=== PATIENT | male | born 1985 | race Caucasian/White ===

== ENCOUNTER 2020-02-29 04:26 | Emergency (ER) | payer MEDICAID, OTHER ==
[~2020-02-29] VITALS: Ht 180.3 cm; Wt 98.5 kg
[~2020-02-29 04:26] MED LIST: LISI-170 PO
--- NOTE | 2020-02-29 05:00 | NUR ---
SAMUEL CABA AT BEDSIDE EVALUATING PT
[2020-02-29] MEDS ORDERED: HYDROmorphone 1 MG/ML, 1ML INJ ONE (05:14)
[2020-02-29] MEDS ORDERED: ONDANSETRON ODT 4 MG ONE (05:14)
[2020-02-29] MEDS ORDERED: L.E.T SOLUTION TP ONE ×3 (05:15→05:58)
[2020-02-29] MEDS ORDERED: HYDROmorphone 2 MG/ML, 1ML IM ONE (05:30)
[2020-02-29] MEDS ORDERED: ONDANSETRON ODT 4 MG PO ONE (05:30)
[2020-02-29] MEDS ORDERED: KETOROLAC 30 MG/1 ML ONE (05:41)
[2020-02-29] MEDS ORDERED: MORPHINE SULFATE 4 MG/ML, 1ML ONE (05:42)
[2020-02-29] MEDS ORDERED: DIAZEPAM 5 MG/ML, 2ML ONE (05:44)
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
[2020-02-29] MEDS ORDERED: KETOROLAC 30 MG/1 ML IVPush ONE (06:00)
[2020-02-29] MEDS ORDERED: SODIUM CHLORIDE 0.9% 1,000ML IVBOLUS ONE (06:00)
[2020-02-29] MEDS ORDERED: MORPHINE SULFATE 4 MG/ML, 1ML IV PRN (06:00)
[2020-02-29] MEDS ORDERED: DIAZEPAM 5 MG/ML, 2ML IV ONE (06:00)
[2020-02-29] MEDS ORDERED: LIDOCAINE JELLY 2%, 30GM TP ONE (06:30)
--- NOTE | 2020-02-29 06:41 | NUR ---
SAMUEL CABA SPOKE WITH PT, HE IS NOW AGREEING TO IV. IV ESTABLISHED AND PT MEDICATED PER EMAR. 5 RIGHTS ADDRESSED
[2020-02-29] MEDS ORDERED: ASPIRIN 81 MG TABLET CHEW ONE (06:55)
--- NOTE | 2020-02-29 07:01 | NUR ---
REPORT TO MONIQUE RN
--- NOTE | 2020-02-29 07:01 | NUR ---
REPORT TAKEN. ORDERED SOPHIE GRANADOS FROM LAB. PATIENT IN BED ON SIDE, FRIEND AT BEDSIDE.
[2020-02-29 07:17] VITALS: BP 128/78
--- NOTE | 2020-02-29 07:19 | NUR ---
LIDO JELLY APPLIED TO WOUND TO HELP WITH PAIN
--- NOTE | 2020-02-29 07:49 | NUR ---
wound dressed with allevyn and gauze/tape. instructions reviewed.
== END 2020-02-29 08:21 | disposition home or self-care (01) ==
LOC: ED 08:10
DX: S40.212A Abrasion of left shoulder, initial encounter (principal); S30.810A Abrasion of lower back and pelvis, initial encounter; S50.312A Abrasion of left elbow, initial encounter; S40.812A Abrasion of left upper arm, initial encounter; S70.212A Abrasion, left hip, initial encounter; X58.XXXA Exposure to other specified factors, initial encounter; Y93.89 Activity, other specified; Y92.89 Other specified places as the place of occurrence of the external cause; Y99.8 Other external cause status
CPT/HCPCS: 96372; 96374; 96375; 99284; J1170; J1885; J3360; J7030

== ENCOUNTER 2020-03-02 11:08 | Emergency (ER) | payer MEDICAID ==
[~2020-03-02] VITALS: Ht 182.9 cm; Wt 97.7 kg
[2020-03-02 11:12] VITALS: BP 164/105
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
--- NOTE | 2020-03-02 11:59 | NUR ---
DRESSING REMOVED FROM L UPPER ARM AND TORSO PER SANTO TABARES
--- NOTE | 2020-03-02 12:08 | NUR ---
SANTO BAKER AT BEDSIDE FOR "ROAD RASH" WOUND EVALUATION S/P DRESSING REMOVAL
[2020-03-02] MEDS ORDERED: NEOSPORIN OINT. PKT 1 PACKET ONE ×2 (12:12→12:16)
--- NOTE | 2020-03-02 12:18 | NUR ---
FRITZ HAND SPINNER AT BEDSIDE. CLEANSING AND DRESSING WOUNDS PER MD ORDER. PT TOLERATING WELL.
--- NOTE | 2020-03-02 13:07 | NUR ---
Patient and significant other given discharge instructions and they have confirmed that they understand the instructions. Patient ambulatory with steady gait.
== END 2020-03-02 13:08 | disposition home or self-care (01) ==
LOC: ED 11:20
DX: S30.811A Abrasion of abdominal wall, initial encounter (principal); S40.812A Abrasion of left upper arm, initial encounter; S70.312A Abrasion, left thigh, initial encounter; Z48.00 Encounter for change or removal of nonsurgical wound dressing; X58.XXXA Exposure to other specified factors, initial encounter; Y93.89 Activity, other specified; Y92.830 Public park as the place of occurrence of the external cause; Y99.8 Other external cause status
CPT/HCPCS: 99282